=== PATIENT | female | born 1975 | race Caucasian/White ===

== ENCOUNTER 2022-06-25 09:58 | Emergency (ER) | payer BC | END 2022-06-25 12:42 | disposition home or self-care (01) | LOC: JP.ED 09:58 | DX: S16.1XXA Strain of muscle, fascia and tendon at neck level, initial encounter (principal); S20.221A Contusion of right back wall of thorax, initial encounter; S80.01XA Contusion of right knee, initial encounter; Z91.048 Other nonmedicinal substance allergy status; Z88.0 Allergy status to penicillin; Z88.1 Allergy status to other antibiotic agents; Z88.7 Allergy status to serum and vaccine; Z91.040 Latex allergy status; Z88.2 Allergy status to sulfonamides; Z79.899 Other long term (current) drug therapy; W23.1XXA Caught, crushed, jammed, or pinched between stationary objects, initial encounter | CPT/HCPCS: 71250; 71250-26; 72125; 72125-26; 99284 ==

== ENCOUNTER 2022-11-18 13:08 | Emergency (ER) | payer BC ==
[2022-11-18] MEDS ORDERED: Ketorolac 30 MG/ML SDV IM ONE (14:18)
[2022-11-18 14:51] LABS: ESTIMATED GFR 78 mL/min (>60)
== END 2022-11-18 16:27 | disposition home or self-care (01) ==
LOC: JP.ED 13:08
DX: G43.909 Migraine, unspecified, not intractable, without status migrainosus (principal); R03.0 Elevated blood-pressure reading, without diagnosis of hypertension; E66.9 Obesity, unspecified; Z68.30 Body mass index [BMI] 30.0-30.9, adult; Z88.7 Allergy status to serum and vaccine; Z88.2 Allergy status to sulfonamides; Z88.0 Allergy status to penicillin; Z91.040 Latex allergy status; Z88.1 Allergy status to other antibiotic agents
CPT/HCPCS: 36415; 80053; 81001; 84484; 85025; 93005; 96372; 99285; J1885

== ENCOUNTER 2023-09-28 06:54 | Day surgery (SDC) | payer BC ==
[2023-09-28] MEDS ORDERED: Midazolam 1 MG/ML 2 ML SDV ONE (07:00)
[2023-09-28] MEDS ORDERED: Propofol 200 MG/20 ML SDV ONE (07:01)
[2023-09-28] MEDS ORDERED: fentaNYL 50 MCG/ML SDV ONE (07:01)
[2023-09-28] MEDS: Lactated Ringers 1,000 ML IV SCH (07:46)
== END 2023-09-28 10:14 | disposition home or self-care (01) ==
LOC: JP.SDS 06:54
PROVIDERS: ATTEND Family Medicine
DX: D12.2 Benign neoplasm of ascending colon (principal); F41.9 Anxiety disorder, unspecified; E66.9 Obesity, unspecified; Z80.0 Family history of malignant neoplasm of digestive organs; Z88.0 Allergy status to penicillin; Z88.2 Allergy status to sulfonamides; Z88.1 Allergy status to other antibiotic agents; Z88.7 Allergy status to serum and vaccine; Z91.040 Latex allergy status; Z68.33 Body mass index [BMI] 33.0-33.9, adult
CPT/HCPCS: 88305; J2250; J2704; J3010; J7120

== ENCOUNTER 2024-04-08 02:19 | Emergency (ER) | payer BC, OTHER | END 2024-04-08 04:30 | disposition home or self-care (01) | LOC: JP.ED 02:19 | DX: S31.41XA Laceration without foreign body of vagina and vulva, initial encounter (principal); S93.401A Sprain of unspecified ligament of right ankle, initial encounter; Z90.49 Acquired absence of other specified parts of digestive tract; Z90.710 Acquired absence of both cervix and uterus; Z79.899 Other long term (current) drug therapy; Z88.0 Allergy status to penicillin; Z91.048 Other nonmedicinal substance allergy status; Z88.1 Allergy status to other antibiotic agents; Z88.7 Allergy status to serum and vaccine; Z91.040 Latex allergy status; Z88.2 Allergy status to sulfonamides; V80.010A Animal-rider injured by fall from or being thrown from horse in noncollision accident, initial encounter | CPT/HCPCS: 29515; 73610-26-RT; 73610-RT; 99284-25 ==